=== PATIENT | male | born 1955 | race Caucasian/White ===

== ENCOUNTER → 2020-05-29 | Outpatient (CLI) | payer BC | END | disposition home or self-care (01) | LOC: COVID19 01:12 | PROVIDERS: ATTEND Family Medicine | DX: J02.9 Acute pharyngitis, unspecified (principal); Z20.828 Contact with and (suspected) exposure to other viral communicable diseases ==

== ENCOUNTER → 2021-10-15 | Outpatient (CLI) | payer BC | LOC: COVID19 16:25 | PROVIDERS: ATTEND Family Medicine | DX: U07.1 COVID-19 (principal) ==